=== PATIENT | female | born 1960 | race Caucasian/White ===

== ENCOUNTER 2022-08-11 14:54 | Emergency (ER) | payer MEDICAID ==
[~2022-08-11] VITALS: Ht 170.2 cm; Wt 54.0 kg
[~2022-08-11 14:54] MED LIST: BUPR1TAB44 SL; CLON0.1T2 PO; HYDR20OI TOP; HYDR50TA65 PO; LEVO100T PO; LEVO25TA7 PO; LIDO700A47 TP; LORA-268 PO; MEGE40TA5 PO; NAPR-1170 PO; NICO-631 TD; NICO2GUM29 BU; OLAN10TA73 PO; ONDA4TAB12 SL; PANT40TA54 PO; PARO10TA4 PO; PARO40TA4 PO; PSYL575P22 PO; potassium cl 10mEq ER tablet PO
[2022-08-11 15:30] VITALS: BP 121/56
--- NOTE | 2022-08-11 16:23 | NUR ---
CALLED [facility] REGARDING PLACEMENT FOR PATIENT. [facility] CONFIRMED [facility] AVAILABLE TO PATIENT.
[2022-08-11] MEDS ORDERED: HYDROcodone/acetaminophen 5mg/325mg tablet PO ONE (16:30)
--- NOTE | 2022-08-11 16:47 | NUR ---
[facility] CALLED FOR PATIENT EST TIME 1 HOUR
== END 2022-08-11 16:56 | disposition home or self-care (01) ==
LOC: ER 14:55
DX: M25.552 Pain in left hip (principal); F41.8 Other specified anxiety disorders; F32.9 Major depressive disorder, single episode, unspecified; Z59.00 Homelessness unspecified; Z88.2 Allergy status to sulfonamides; Z79.899 Other long term (current) drug therapy; Z79.1 Long term (current) use of non-steroidal anti-inflammatories (NSAID); Z79.2 Long term (current) use of antibiotics
CPT/HCPCS: 99283

== ENCOUNTER 2022-08-18 13:53 | Emergency (ER) | payer MEDICAID ==
[~2022-08-18] VITALS: Ht 170.2 cm; Wt 56.8 kg
[2022-08-18 14:28] LABS: BASOPHILS # (AUTO) 0.1 X10'3 (0-0.2); BASOPHILS % (AUTO) 0.9 % (0-1); EOSINOPHILS # (AUTO) 0.2 X10'3 (0-0.9); EOSINOPHILS % (AUTO) 3.3 % (0-6); HEMATOCRIT 28.5 % (35.0-45.0); HEMOGLOBIN 9.5 g/dl (12.0-16.0); LYMPHOCYTES # (AUTO) 1.8 X10'3 (1.1-4.8); LYMPHOCYTES % (AUTO) 25.5 % (21-51); MEAN CORPUSCULAR HEMOGLOBIN 29.4 PG (27.0-31.0); MEAN CORPUSCULAR HGB CONC 33.4 g/dL (33.0-36.5); MEAN PLATELET VOLUME 7.4 FL (7.4-10.4); MONOCYTES # (AUTO) 0.5 X10'3 (0-0.9); MONOCYTES % (AUTO) 6.6 % (2-12); NEUTROPHILS # (AUTO) 4.4 X10'3 (1.8-7.7); NEUTROPHILS % (AUTO) 63.7 % (42-75); PLATELET COUNT 347 X10'3 (140-440); RED BLOOD COUNT 3.24 X10'6 (4.20-5.60); RED CELL DISTRIBUTION WIDTH 13.5 % (11.5-14.5); WHITE BLOOD COUNT 6.9 X10'3 (4.5-11.0)
--- NOTE | 2022-08-18 14:38 | NUR ---
MEDS TO PHARMACY WITH PHARMACIST.
[2022-08-18 14:49] LABS: ALANINE AMINOTRANSFERASE 17 U/L (12-78); ALBUMIN 3.2 G/DL (3.4-5.0); ALBUMIN/GLOBULIN RATIO 1.1 (1.1-1.5); ALKALINE PHOSPHATASE 49 IU/L (46-116); ANION GAP 6 (8-16); ASPARTATE AMINO TRANSFERASE 20 U/L (10-37); BILIRUBIN,TOTAL 0.3 MG/DL (0.1-1.0); BLOOD UREA NITROGEN 8 MG/DL (7-18); BUN/CREATININE RATIO 9.5 (6.6-38.0); CALCIUM 8.3 MG/DL (8.5-10.1); CHLORIDE 108 MMOL/L (99-107); CREATININE 0.84 MG/DL (0.40-0.90); GLUCOSE 115 MG/DL (70-104); POTASSIUM 3.3 MMOL/L (3.5-5.1); SODIUM 142 MMOL/L (135-145); TOTAL CARBON DIOXIDE 27.7 MMOL/L (24-32); TOTAL PROTEIN 6.2 G/DL (6.4-8.2); eGFR 69 ML/MIN
[2022-08-18 14:53] LABS: ETHANOL < 0.010 GM/DL (0.0-0.010)
[2022-08-18 14:55] LABS: CLARITY,URINE CLEAR (Clear); COLOR,URINE STRAW (Yellow); GLUCOSE, URINE NEGATIVE (Neg); KETONES,URINE NEGATIVE (Neg); LEUKOCYTE ESTERASE ,URINE NEGATIVE (Neg); NITRITES, URINE NEGATIVE (Neg); OCCULT BLOOD,URINE NEGATIVE (Neg); PROTEIN,URINE NEGATIVE (Neg); UROBILINOGEN,URINE 0.2 E.U/dL (0.2-1.0)
[2022-08-18 14:56] LABS: UA COLLECTION TYPE CLN CATCH MIDSTREAM
[2022-08-18 15:05] LABS: URINE AMPHETAMINE SCREEN NEGATIVE (Neg); URINE BARBITUATE SCREEN NEGATIVE (Neg); URINE BENZODIAZEPINES SCREEN NEGATIVE (Neg); URINE CANNABINOID SCREEN POSITIVE (Neg); URINE COCAINE SCREEN NEGATIVE (Neg); URINE METHADONE SCREEN NEGATIVE (Neg); URINE OPIATE SCREEN NEGATIVE (Neg); URINE PHENCYCLIDINE SCREEN NEGATIVE (Neg)
[2022-08-18] MEDS ORDERED: HYDR50TA65 PO (16:02)
[2022-08-18] MEDS ORDERED: CLON0.1T PO (16:02)
[2022-08-18] MEDS ORDERED: LEVO100T9 PO (16:03)
[2022-08-18] MEDS ORDERED: PARO40TA4 PO (16:04)
[2022-08-18] MEDS ORDERED: PANT-47 PO (16:05)
[2022-08-18] MEDS ORDERED: OLAN10TA73 PO (16:07)
[2022-08-18] MEDS ORDERED: NAPR-1170 PO (16:07)
[2022-08-18] MEDS ORDERED: NICO-731 TOP (16:08)
--- NOTE | 2022-08-18 18:03 | NUR ---
Patient ambulated to bed 22, accompanied by RAHAT Prasad
--- NOTE | 2022-08-18 18:30 | NUR ---
PT ASLEEPING IN BED. PT DOES NOT APPEAR TO BE IN DISTRESS AT THIS TIME.
[2022-08-18] MEDS ORDERED: potassium Cl 20 mEq SR tablet PO STA (19:26)
--- NOTE | 2022-08-18 19:42 | NUR ---
PT LAYING IN BED RESTING. PT APPEARS TO BE IN AND OUT OF SLEEP AT THIS TIME. RR ARE EQUAL AND UNLABORED.
--- NOTE | 2022-08-18 20:41 | NUR ---
PER SCM NO PACKET HAS BEEN SENT TO THEM. INFORMED [facility] THAT [facility] WILL ENSURE THEY GET A PACKET.
--- NOTE | 2022-08-18 20:47 | NUR ---
PT AWOKE TO EAT SOME OF HER DINNER AND CONTINUES TO FALL IN AND OUT OF SLEEP AFTER EATING.
--- NOTE | 2022-08-18 22:13 | NUR ---
PT IS SLEEPING ON THE BED IN ER ROOM 22. RR ARE EQUAL AND UNLABORED
[2022-08-18 22:59] LABS: URINE HCG NEGATIVE (NEG)
--- NOTE | 2022-08-18 23:00 | NUR ---
PER [facility] THEY WILL CONCIDER ACCEPTING THE PT FOR ADMISSION. [facility] REQUESTED A URINE HCG RESULT BE SENT TO THEM VIA FAX. LAB RESULTS FAXED.
--- NOTE | 2022-08-18 23:55 | NUR ---
PT CONTINUES TO SLEEP IN HER BED AT THIS TIME. RR ARE EQUAL AND UNLABORED.
--- NOTE | 2022-08-19 01:00 | NUR ---
PT CONTINUES TO SLEEP IN BED. RR ARE EQUAL AND UNLABORED.
--- NOTE | 2022-08-19 02:35 | NUR ---
PT AWOKE TO ASK FOR ANOTHER BLANKET. WHEN GIVEN A WARM BLANKET PT LAID BACK DOWN TO GO TO SLEEP. PT IS RESTING IN BED WITH EYES CLOSED.
--- NOTE | 2022-08-19 03:30 | NUR ---
PT IS SLEEPING IN THE BED IN THE SUPINE POSITION WITH BLANKETS. RR ARE EQUAL AND UNLABORED.
--- NOTE | 2022-08-19 04:33 | NUR ---
PT CONTINUES TO SLEEP IN THE BED. NO DISTRESS NOTED AT THIS TIME.
--- NOTE | 2022-08-19 05:50 | NUR ---
PT CONTINUES TO SLEEP THIS MORNING. PT DOES NOT SHOW S/S OF DISTRESS AT THIS TIME.
--- NOTE | 2022-08-19 07:02 | NUR ---
Received Pt in bed sleeping w/o distress at this time.
--- NOTE | 2022-08-19 09:12 | NUR ---
Pt remains in bed resting and sleeping on / off and in no distress. Pt ate breakfast and ia cooperative and pleasant with staff.
--- NOTE | 2022-08-19 11:09 | NUR ---
Pt in bed resting. Pt given snack and meds reviewed with her. Med Rec. signed by and faxed to pharmacy.
[2022-08-19] MEDS ORDERED: cloNIDine 0.1 mg tablet PO PRN (11:35)
[2022-08-19] MEDS ORDERED: LORazepam 0.5 MG tablet PO PRN (11:35)
[2022-08-19] MEDS ORDERED: ondansetron 4mg rapidly disintigrating tab PO PRN (11:35)
[2022-08-19] MEDS: hydrocortisone 2.5% 20 gm ointment TP SCH ×2 (11:50→20:00)
[2022-08-19] MEDS: megestrol acetate 20mg tablet PO SCH ×2 (11:51→21:16)
[2022-08-19] MEDS: pantoprazole 40mg Tablet.DR PO SCH (12:26)
[2022-08-19] MEDS: levoTHYROXINE 100mcg tablet PO SCH (12:26)
[2022-08-19] MEDS: nicotine 14mg patch - 24hr TD SCH (12:26)
[2022-08-19] MEDS: hydrOXYzine 25 MG tablet PO SCH ×3 (12:26→20:50)
--- NOTE | 2022-08-19 13:21 | NUR ---
Pt up to bathroom and ate lunch. Pt took meds w/o issue and used phone. Pt asked if there were any beds upstairs, as she would like to go to [facility]. Pt requested her tablet, but was informed of [facility] rules that would not permit that. She took the limit well.
--- NOTE | 2022-08-19 15:20 | NUR ---
Pt in bed sleeping w/o distress at this time.
--- NOTE | 2022-08-19 17:47 | NUR ---
Pt c/o hip pain and she was given her heath meds. Pt distracted by dinner which arrived.
--- NOTE | 2022-08-19 18:09 | NUR ---
pt BP was low on tech's intial BP, BP was retaken and was 95/52 (about the same as initial) RN was notified of pain and of pt low BP.
[2022-08-19] MEDS: olanzapine 10mg tablet PO SCH (20:50)
[2022-08-19] MEDS: PARoxetine 20mg tablet PO SCH (20:50)
[2022-08-19] MEDS ORDERED: HYDROcodone/acetaminophen 5mg/325mg tablet PO ONE (21:00)
--- NOTE | 2022-08-20 00:08 | NUR ---
Pt sleeping at this time. Was sleeping at start of shift. Wakened easily for meds, pleasant and cooperative. Pt denies SI at this time. C/O pain in old surgical site on left hip. Pt had taken all routine doses of Tramadol order for 1x dose of Clarinda obtained and given. Pt went back to sleep.
--- NOTE | 2022-08-20 01:10 | NUR ---
Pt is laying in bed asleep. RR 16
--- NOTE | 2022-08-20 02:27 | NUR ---
Pt cotinues to sleep uninterupted.
--- NOTE | 2022-08-20 04:56 | NUR ---
Pt ambulated independantly to BR and returned to bed. Lying in bed awake at this time.
--- NOTE | 2022-08-20 06:35 | NUR ---
Patient sleeping supine. No distress observed. Continue to monitor.
[2022-08-20] MEDS: hydrocortisone 2.5% 20 gm ointment TP SCH ×2 (08:00→20:00)
--- NOTE | 2022-08-20 08:22 | NUR ---
Patient eating breakfast. No distress observed. Continue to monitor.
[2022-08-20] MEDS: hydrOXYzine 25 MG tablet PO SCH ×4 (08:38→20:51)
[2022-08-20] MEDS: nicotine 14mg patch - 24hr TD SCH (08:39)
[2022-08-20] MEDS: levoTHYROXINE 100mcg tablet PO SCH (08:39)
[2022-08-20] MEDS: pantoprazole 40mg Tablet.DR PO SCH (08:39)
[2022-08-20] MEDS: megestrol acetate 20mg tablet PO SCH ×3 (09:17→20:25)
--- NOTE | 2022-08-20 09:20 | NUR ---
Patient speaking to her daughter on the phone. No distress observed. Continue to monitor.
--- NOTE | 2022-08-20 11:34 | NUR ---
Patient sleeping on right side. No distress observed. Continue to monitor.
--- NOTE | 2022-08-20 12:19 | NUR ---
Patient eating lunch. No distress observed. Continue to monitor.
--- NOTE | 2022-08-20 14:11 | NUR ---
Patient sleeping supine. No distress observed. Continue to monitor.
--- NOTE | 2022-08-20 16:03 | NUR ---
Patient awake, sitting up in bed and eating a snack. No distress observed. Continue to monitor.
[2022-08-20] MEDS: HYDROcodone/acetaminophen 5mg/325mg tablet PO PRN (16:29)
--- NOTE | 2022-08-20 19:21 | NUR ---
PT REQUESTED PAIN MED FOR HER HIP. PT EDUCATION GIVEN ON PAIN MED MACY/FREQ. PT INFORMED SHE JUST HAD PAIN MED 3HRS PRIOR AND SHE NEEDED TO WAIT UNTIL HER NEXT SCHD TIWM
[2022-08-20] MEDS: PARoxetine 20mg tablet PO SCH (20:51)
[2022-08-20] MEDS: olanzapine 10mg tablet PO SCH (20:51)
--- NOTE | 2022-08-20 22:10 | NUR ---
PT REQUEST PAIN MED . PT EDUCATED ON SCHD/FREQ OF PAIN MED.
[2022-08-21] MEDS: HYDROcodone/acetaminophen 5mg/325mg tablet PO PRN ×2 (01:19→13:12)
--- NOTE | 2022-08-21 01:25 | NUR ---
PT REQUESTED PAIN MED. PRN PAIN MED GIVEN.
--- NOTE | 2022-08-21 06:35 | NUR ---
Patient sleeping supine. No distress observed. Continue to monitor.
[2022-08-21] MEDS: hydrocortisone 2.5% 20 gm ointment TP SCH (08:00)
--- NOTE | 2022-08-21 08:11 | NUR ---
Patient eating breakfast. No distress observed. Continue to monitor.
[2022-08-21] MEDS: nicotine 14mg patch - 24hr TD SCH (08:24)
[2022-08-21] MEDS: pantoprazole 40mg Tablet.DR PO SCH (08:24)
[2022-08-21] MEDS: hydrOXYzine 25 MG tablet PO SCH ×2 (08:24→13:10)
[2022-08-21] MEDS: megestrol acetate 20mg tablet PO SCH (08:24)
[2022-08-21] MEDS: levoTHYROXINE 100mcg tablet PO SCH (08:25)
--- NOTE | 2022-08-21 09:20 | NUR ---
Garo MELO, re-evaluating patient. No distress observed. Continue to monitor.
--- NOTE | 2022-08-21 11:03 | NUR ---
Patient pending discharge. Dr Crowe is very busy with critical patients and unable to prind d/c instructions. .
--- NOTE | 2022-08-21 13:10 | NUR ---
RN called for Taxi for patient to the [place] (as patient has a bad hip). Will be to 1.5 hours to await a cab. Patient is aware. Continue to monitor.
[2022-08-21 13:19] VITALS: BP 132/78
== END 2022-08-21 14:25 | disposition home or self-care (01) ==
LOC: ER 13:53
DX: R45.851 Suicidal ideations (principal); Z20.822 Contact with and (suspected) exposure to COVID-19; M25.552 Pain in left hip; Z88.2 Allergy status to sulfonamides
CPT/HCPCS: 36415; 80053; 80305; 80320; 81003; 81025; 84443; 85025; 87811; 99285; Q0177